=== PATIENT | female | born 1945 | race African-American/Black ===

== ENCOUNTER 2020-09-21 10:56 | Emergency (ER) | payer MEDICARE, OTHER ==
[~2020-09-21] VITALS: Ht 160 cm; Wt 53.5 kg
[2020-09-21] MEDS ORDERED: MULT-439 PO (11:15)
[2020-09-21] MEDS ORDERED: ASCO500C17 PO (11:15)
[2020-09-21] MEDS ORDERED: LACT1CAP25 PO (11:15)
[2020-09-21] MEDS ORDERED: NA P133E RC (11:15)
[2020-09-21] MEDS ORDERED: GABA300C PO (11:15)
[2020-09-21] MEDS ORDERED: TAMS-12 PO (11:15)
[2020-09-21] MEDS ORDERED: FAMO-131 PO (11:15)
[2020-09-21] MEDS ORDERED: AMIN887L PO (11:15)
[2020-09-21] MEDS ORDERED: HYDR-500 PO (11:15)
[2020-09-21] MEDS ORDERED: SENN-18 PO (11:15)
[2020-09-21] MEDS ORDERED: BISA10SU11 RC (11:15)
[2020-09-21] MEDS ORDERED: DIVA500T2 PO (11:15)
[2020-09-21] MEDS ORDERED: FERR325T23 PO (11:15)
[2020-09-21] MEDS ORDERED: MAGN400O6 PO (11:15)
[2020-09-21] MEDS ORDERED: ACET325T53 PO (11:15)
--- NOTE | 2020-09-21 11:47 | NUR ---
[facility]IBFROM SNF TO ER BED 6. AAOX2. NOT IN RESP DISTRESS. BED BOUND. BROUGHT MEGAN FOR VAGINAL BLEEDING. UPON ASSESSING PT, NOTED MIN BRIGHT RED BLOOD ON HER DIAPER. NO ACTIVE BLEEDING WAS NOTED. PT WAS NOTED SCRATCING ALL OVER, EVEN REACHING INTO HER PERINEAL AREA. PT IS NOTED WITH PERINEAL REDNESS. MULIPLE SCRATHES ON HER HIP WHICH WAS NOTED SOME REDNESS. SACRAL REDNESS AND ABRASSION WHERE NOTED WELL. PT WAS PROVIDED WITH A VERY GOOD PERINEAL CARE. MD WAS AT THE BEDSIDE AFTERWARDS FOR VAGINAL EXAM, CHAPERONED BY ME AND AN EMT, DINESH. PT WILL BE PLACED ON BILATERAL HAND MITTENS TO PREVENT FROM FURTHER SCRATCHING.
[2020-09-21] MEDS ORDERED: diphenhydrAMINE HCL ELIX 25 MG/10 ML UDC ONE (11:56)
[2020-09-21] MEDS ORDERED: DIPHENHYDRAMINE HCL 12.5 MG/5 ML UDC PO ONE (12:00)
[2020-09-21 12:28] LABS: BASOPHILS % (AUTO) 0.4 % (0.0-2.0); EOSINOPHILS % (AUTO) 1.4 % (0.0-6.0); HEMATOCRIT 40 % (33-45); HEMOGLOBIN 12.9 g/dL (11.5-14.8); LYMPHOCYTES # (AUTO) 1.7 /CMM (0.8-4.8); LYMPHOCYTES % (AUTO) 19.4 % (20.0-44.0); MEAN CORPUSCULAR HGB CONC 32 g/dl (31.0-36.0); MEAN CORPUSCULAR VOLUME 83 fL (82-100); MONOCYTES # (AUTO) 0.9 /CMM (0.1-1.30); MONOCYTES % (AUTO) 10.5 % (2.0-12.0); NEUTROPHILS # (AUTO) 6.1 /CMM (1.8-8.9); NEUTROPHILS % (AUTO) 68.3 % (43.0-81.0); PLATELET COUNT (AUTO) 255 /CMM (150-450); RED BLOOD CELL COUNT(AUTO) 4.82 MIL/uL (4.0-5.2)
[2020-09-21 12:58] LABS: ALBUMIN 3.5 g/dL (3.4-5.0); BILIRUBIN,DIRECT 0.1 mg/dL (0.0-0.2); BILIRUBIN,TOTAL 0.3 mg/dL (0.2-1.0); CALCIUM, SERUM 9.1 mg/dL (8.5-10.1); CREATININE 0.6 mg/dL (0.6-1.3); POTASSIUM 4.5 mmol/L (3.5-5.1); TOTAL PROTEIN, SERUM 7.2 g/dL (6.4-8.2)
--- NOTE | 2020-09-21 13:29 | NUR ---
CALLED [facility] ETA [phone]
--- NOTE | 2020-09-21 14:05 | NUR ---
CALLED [facility] TO INFORM THT PATIENT IS COMING BACK. SPOKE WITH KAMI. ONE OF THE STAFF. PT'S NURSE IS ON LUNCH AND WILL CALL ME BACK FOR REPORT. REPORT IS GIVEN WELL TO AMBULANCE EMT.
--- NOTE | 2020-09-21 14:06 | NUR ---
PT IS MEDICALLY CLEARED FOR DISCHARGE BACK TO HER FAILCITY. PT IS IN STABLE CONDITION. WRITTEN INSTRUCTION WAS PROVIDED FOR THE FACILITY WELL REPORT.
--- NOTE | 2020-09-21 14:10 | NUR ---
pt left on gurney with 2 emt at bedside. pt is in stable condition for transport
[2020-09-21 14:27] VITALS: BP 131/87
== END 2020-09-21 14:10 | disposition home or self-care (01) ==
LOC: ER 11:03
DX: N93.9 Abnormal uterine and vaginal bleeding, unspecified (principal); F03.90 Unspecified dementia, unspecified severity, without behavioral disturbance, psychotic disturbance, mood disturbance, and anxiety; I10 Essential (primary) hypertension; Z79.899 Other long term (current) drug therapy
CPT/HCPCS: 36415; 80048; 80076; 85025; 99285; Q0163 ×2